=== PATIENT | male | born 1945 | race American Indian/Alaskan Native ===

== ENCOUNTER 2017-01-29 09:38 | Emergency (ER) | payer MEDICARE, MEDICAID ==
[2017-01-29 09:48] VITALS: BP 130/98
--- NOTE | 2017-01-29 10:20 | EDM.PDOC ---
ED HPI GENERAL MEDICAL PROBLEM - General Chief Complaint: ENT Problem Stated Complaint: EAR PAIN [id number] Time Seen by Provider: 01/29/17 10:18 Source of Information: Reports: Patient, Family History Limitations: Reports: No Limitations - History of Present Illness INITIAL COMMENTS - FREE TEXT/NARRATIVE: Per patient and family. pt has been having decreased hearing and states "they are plugged". C/o mild pain to both ears. denies drainage Onset: Other (1 month ago) Duration: Getting Worse Location: Reports: Other (B ears) Quality: Reports: Ache Severity: Mild Improves with: Reports: None Worsens with: Reports: None Associated Symptoms: Reports: No Other Symptoms - Related Data Allergies Allergy/AdvReac Type Severity Reaction Status Date / Time No Known Allergies Allergy Verified 09/14/13 11:00 Home Meds: Home Meds . [Unable to Verify Home Med List] 01/29/17 [History] Past Medical History HEENT History: Reports: Hard of Hearing Cardiovascular History: Reports: Hypertension Endocrine/Metabolic History: Reports: Diabetes, Type II Social & Family History - Caffeine Use Caffeine Use: Reports: Coffee - Recreational Drug Use Recreational Drug Use: No ED ROS ENT - Review of Systems Review Of Systems: See Below HEENT: Reports: Ear Pain ED EXAM, ENT - Physical Exam Exam: See Below Exam Limited By: No Limitations General Appearance: Alert, WD/WN, No Apparent Distress Ears: TM Obscured by Cerumen Respiratory/Chest: No Respiratory Distress, Lungs Clear, Normal Breath Sounds, No Accessory Muscle Use, Chest Non-Tender Cardiovascular: Normal Peripheral Pulses, Regular Rate, Rhythm, No Edema, No Gallop, No JVD, No Murmur, No Rub Course - Vital Signs Last Recorded V/S: Last Vital Signs Temp 98.4 F 01/29/17 09:47 Pulse 68 01/29/17 09:47 Resp 16 01/29/17 09:47 BP 130/98 H 01/29/17 09:47 Pulse Ox 97 01/29/17 09:47 - Re-Assessments/Exams Free Text/Narrative Re-Assessment/Exam: 01/29/17 12:10 multiple attempts at clearing cerumen impaction with minimal resolve. continues to have significant amounts of cerumen that obscures TM. will attempt once more after more soaking of peroxide and water and irrigation. 01/29/17 13:41 Attempted to reclean ears. Large amount of cerumen removed however significant amount remains present. Pt states hearing is markedly improved and no longer requires elevated voice to hear verbal commands. Will send pt home with cerumen softening drops and have him follow up in 2-3 days in clinic. Departure - Departure Time of Disposition: 13:43 Disposition: Home, Self-Care 01 Condition: Good Clinical Impression: Cerumen impaction Qualifiers: Laterality: bilateral Qualified Code(s): H61.23 - Impacted cerumen, bilateral - Discharge Information Instructions: Earwax Buildup Forms: ED Department Discharge Additional Instructions: Please use 5-10 drops of the medication in each ear twice a day. return to clinic in 4 days for re evaluation. return to Er for worsening symptoms, increased drainage or pain to ears.
== END 2017-01-29 14:02 | disposition home or self-care (01) ==
LOC: DL.ED 09:38
DX: H61.23 Impacted cerumen, bilateral (principal); I10 Essential (primary) hypertension; E11.9 Type 2 diabetes mellitus without complications
CPT/HCPCS: 69210; 99282; 99283

== ENCOUNTER 2018-10-03 08:45 | Emergency (ER) | payer MEDICARE, MEDICAID ==
--- NOTE | 2018-10-03 09:10 | EDM.PDOC ---
ED HPI GENERAL MEDICAL PROBLEM - General Chief Complaint: General Stated Complaint: UNKNOWN-AMBULANCE Time Seen by Provider: 10/03/18 09:05 Source of Information: Reports: Patient, EMS, EMS Notes Reviewed, RN, RN Notes Reviewed History Limitations: Reports: No Limitations - History of Present Illness INITIAL COMMENTS - FREE TEXT/NARRATIVE: Pt to ER per [facility] with c/o sudden onset weakness, dizziness, diaphoresis. Patient admits to having high blood pressure and DMII. He denies headache, chest pain, N/V/D. He states he has not been sick recently, denies fever, chills , cough. He states he was somewhat SOB at the time of the incident. Onset: Today, Sudden - Related Data Allergies Allergy/AdvReac Type Severity Reaction Status Date / Time No Known Allergies Allergy Verified 10/03/18 08:56 Home Meds: Home Meds . [Unable to Verify Home Med List] 01/29/17 [History] Past Medical History HEENT History: Reports: Hard of Hearing Cardiovascular History: Reports: Hypertension Endocrine/Metabolic History: Reports: Diabetes, Type II Social & Family History - Caffeine Use Caffeine Use: Reports: Coffee ED ROS GENERAL - Review of Systems Review Of Systems: ROS reveals no pertinent complaints other than HPI. ED EXAM, GENERAL - Physical Exam Exam: See Below Exam Limited By: No Limitations General Appearance: Alert, WD/WN, No Apparent Distress Eye Exam: Bilateral Eye: PERRL (4 sluggish), Other (Cataracts bilaterally) Ears: Normal External Exam, Hearing Grossly Normal Nose: Normal Inspection Throat/Mouth: Other (Cleft palate) Head: Atraumatic, Normocephalic Neck: Normal Inspection, Supple, Non-Tender, Full Range of Motion Respiratory/Chest: No Respiratory Distress, No Accessory Muscle Use, Chest Non- Tender, Decreased Breath Sounds Cardiovascular: Normal Peripheral Pulses, No Gallop, No JVD, No Murmur, No Rub, Irregularly Irregular Peripheral Pulses: 2+: Radial (L), Radial (R) GI/Abdominal: Normal Bowel Sounds, Soft, Non-Tender, Distended (Male) Exam: Deferred Rectal (Males) Exam: Deferred Back Exam: Normal Inspection, Full Range of Motion Extremities: Normal Inspection, Normal Range of Motion, Non-Tender, No Pedal Edema, Normal Capillary Refill Neurological: Alert, Oriented, CN II-XII Intact, Normal Cognition, Normal Reflexes, No Motor/Sensory Deficits Psychiatric: Normal Affect, Anxious Skin Exam: Warm, Dry, Intact, Normal Color, No Rash Lymphatic: No Adenopathy Course - Vital Signs Last Recorded V/S: Last Vital Signs Temp 98.7 F 10/03/18 11:10 Pulse 64 10/03/18 14:08 Resp 20 10/03/18 14:08 BP 125/58 L 10/03/18 14:08 Pulse Ox 93 L 10/03/18 14:08 - Orders/Labs/Meds Orders: Active Orders 24 hr Category Date Time Status EKG Documentation Completion [RC] STAT Care 10/03/18 08:58 Active EKG Documentation Completion [RC] STAT Care 10/03/18 13:00 Active Late Tray [DIET] Routine Diet 10/03/18 10:53 Active Labs: Laboratory Tests 10/03/18 10/03/18 10/03/18 Range/Units 09:07 09:07 09:07 WBC 7.1 (5.0-10.0) 10^3/uL RBC 5.32 (4.6-6.2) 10^6/uL Hgb 14.9 (14.0-18.0) g/dL Hct 45.8 (40.0-54.0) % MCV 86.1 (80-100) fL MCH 28.0 (27.0-34.0) pg MCHC 32.5 L (33.0-35.0) g/dL Plt Count 226 (150-450) 10^3/uL Neut % (Auto) 76.3 H (42.2-75.2) % Lymph % (Auto) 15.7 L (20.5-50.1) % [place] % (Auto) 6.0 (2-8) % Eos % (Auto) 1.6 (1.0-3.0) % Baso % (Auto) 0.4 (0.0-1.0) % D-Dimer, Quantitative 260 (0-400) ng/mL Sodium 135 (135-145) mmol/L Potassium 3.7 (3.6-5.0) mmol/L Chloride 100 L (101-111) mmol/L Carbon Dioxide 22.0 (21.0-31.0) mmol/L Anion Gap 16.7 BUN 20 H (7-18) mg/dL Creatinine 1.0 (0.6-1.3) mg/dL Est Cr Clr Drug Dosing TNP Estimated GFR (MDRD) > 60 BUN/Creatinine Ratio 20.00 Glucose 145 H (74-105) mg/dL Calcium 8.7 (8.4-10.2) mg/dl Total Bilirubin 0.7 (0.2-1.0) mg/dL AST 34 (10-42) IU/L ALT 34 (10-60) IU/L Alkaline Phosphatase 61 (42-121) IU/L Troponin I < 0.02 (0.00-0.02) ng/ml B-Natriuretic Peptide (0-100) pg/ml Total Protein 6.9 (6.7-8.2) g/dl Albumin 3.7 (3.2-5.5) g/dl Globulin 3.2 Albumin/Globulin Ratio 1.16 Urine Color (YELLOW) Urine Appearance (CLEAR) Urine pH (5.0-9.0) Ur Specific [place] (1.005-1.030) Urine Protein (NEGATIVE) Urine Glucose (UA) (NEGATIVE) Urine Ketones (NEGATIVE) Urine Occult Blood (NEGATIVE) Urine Nitrite (NEGATIVE) Urine Bilirubin (NEGATIVE) Urine Urobilinogen (0.2-1.0) mg/dL Ur Leukocyte Esterase (NEGATIVE) Urine RBC /HPF Urine WBC (0-5/HPF) /HPF Ur Epithelial Cells /HPF Amorphous Sediment (0/HPF) /HPF Urine Bacteria (0-FEW/HPF) /HPF Hyaline Casts /LPF Urine Mucus /LPF 10/03/18 10/03/18 10/03/18 Range/Units 09:07 10:16 13:06 WBC (5.0-10.0) 10^3/uL RBC (4.6-6.2) 10^6/uL Hgb (14.0-18.0) g/dL Hct (40.0-54.0) % MCV (80-100) fL MCH (27.0-34.0) pg MCHC (33.0-35.0) g/dL Plt Count (150-450) 10^3/uL Neut % (Auto) (42.2-75.2) % Lymph % (Auto) (20.5-50.1) % [place] % (Auto) (2-8) % Eos % (Auto) (1.0-3.0) % Baso % (Auto) (0.0-1.0) % D-Dimer, Quantitative (0-400) ng/mL Sodium (135-145) mmol/L Potassium (3.6-5.0) mmol/L Chloride (101-111) mmol/L Carbon Dioxide (21.0-31.0) mmol/L Anion Gap BUN (7-18) mg/dL Creatinine (0.6-1.3) mg/dL Est Cr Clr Drug Dosing Estimated GFR (MDRD) BUN/Creatinine Ratio Glucose (74-105) mg/dL Calcium (8.4-10.2) mg/dl Total Bilirubin (0.2-1.0) mg/dL AST (10-42) IU/L ALT (10-60) IU/L Alkaline Phosphatase (42-121) IU/L Troponin I < 0.02 (0.00-0.02) ng/ml B-Natriuretic Peptide 38 (0-100) pg/ml Total Protein (6.7-8.2) g/dl Albumin (3.2-5.5) g/dl Globulin Albumin/Globulin Ratio Urine Color Dark yellow (YELLOW) Urine Appearance Clear (CLEAR) Urine pH 6.0 (5.0-9.0) Ur Specific [place] 1.020 (1.005-1.030) Urine Protein Trace H (NEGATIVE) Urine Glucose (UA) Negative (NEGATIVE) Urine Ketones Negative (NEGATIVE) Urine Occult Blood Negative (NEGATIVE) Urine Nitrite Negative (NEGATIVE) Urine Bilirubin Negative (NEGATIVE) Urine Urobilinogen 0.2 (0.2-1.0) mg/dL Ur Leukocyte Esterase Negative (NEGATIVE) Urine RBC Not seen /HPF Urine WBC Not seen (0-5/HPF) /HPF Ur Epithelial Cells Few /HPF Amorphous Sediment Few (0/HPF) /HPF Urine Bacteria Not seen (0-FEW/HPF) /HPF Hyaline Casts Occasional H /LPF Urine Mucus Few H /LPF - Radiology Interpretation Free Text/Narrative:: Chest xray: No acute findings See rad report - Re-Assessments/Exams Free Text/Narrative Re-Assessment/Exam: 10/03/18 14:11 Labs and diagnostics discussed with the patient. He states understanding. Departure - Departure Time of Disposition: 13:38 Disposition: Home, Self-Care 01 Condition: Good Clinical Impression: Vasovagal near-syncope, Vasovagal episode - Discharge Information *PRESCRIPTION DRUG MONITORING PROGRAM REVIEWED*: No *COPY OF PRESCRIPTION DRUG MONITORING REPORT IN PATIENT LUIS: No Instructions: Near-Syncope, [id number], Vasovagal Syncope, Adult Referrals: PCP,None [Primary Care Provider] - Forms: ED Department Discharge Additional Instructions: Drink plenty of water Take medications as prescribed Follow up with your primary care facility - My Orders Last 24 Hours: My Active Orders 10/03/18 08:58 EKG Documentation Completion [RC] STAT 10/03/18 10:53 Late Tray [DIET] Routine 10/03/18 13:00 EKG Documentation Completion [RC] STAT - Assessment/Plan Last 24 Hours: My Active Orders 10/03/18 08:58 EKG Documentation Completion [RC] STAT 10/03/18 10:53 Late Tray [DIET] Routine 10/03/18 13:00 EKG Documentation Completion [RC] STAT
[2018-10-03 09:39] LABS: ANION GAP 16.7; CHLORIDE,CL 100 mmol/L (101-111); SODIUM,NA 135 mmol/L (135-145)
--- NOTE | 2018-10-03 09:44 | CR ---
Clinical history: 73-year-old male chest pain. Interpretation: Reasonable inspiratory effort upright AP portable chest, obese male. Normal cardiac silhouette without cephalization of flow, signs of alveolar edema or dependent pleural effusion. No lung mass, hilar lymphadenopathy or focal lobar pneumonia. No atelectasis/collapse. No pneumothorax or free subdiaphragmatic air. CONCLUSION: No acute cardiopulmonary abnormality.
[2018-10-03 14:08] VITALS: BP 125/58
== END 2018-10-03 14:15 | disposition home or self-care (01) ==
LOC: DL.ED 08:45
DX: R55 Syncope and collapse (principal); I10 Essential (primary) hypertension; E11.9 Type 2 diabetes mellitus without complications
CPT/HCPCS: 36415; 71045; 80053; 81001; 83880; 84484; 85025; 85379; 93005; 99285

== ENCOUNTER 2021-03-11 17:50 | Emergency (ER) | payer MEDICARE, MEDICAID ==
[2021-03-11 19:18] VITALS: BP 121/70; PULSE 67
--- NOTE | 2021-03-11 19:29 | EDM.PDOC ---
ED HPI GENERAL MEDICAL PROBLEM - General Chief Complaint: Cardiovascular Problem Stated Complaint: HIGH BLOOD PRESSURE Time Seen by Provider: 03/11/21 19:15 Source of Information: Reports: Patient History Limitations: Reports: No Limitations - History of Present Illness INITIAL COMMENTS - FREE TEXT/NARRATIVE: ED per w/c with report of feeling dizzy while driving . Episode lasted approximately 2 hours, Sx now resolved. Stated checked out at [facility] and told BP high and should be checked out. Denies prior similar episodes. No weakness, Denied noting difficulty with speech, Stated vision blurry but unclear if new or different from usual. Prior hx CVA with left nathan weakness years ago. Onset: Today (1499) - Related Data Allergies Allergy/AdvReac Type Severity Reaction Status Date / Time No Known Allergies Allergy Verified 10/03/18 08:56 Home Meds: Home Meds Isosorbide Mononitrate [Imdur] 30 mg PO DAILY 03/11/21 [History] Meloxicam 15 mg PO DAILY 03/11/21 [History] Omeprazole 20 mg PO DAILY 03/11/21 [History] atorvaSTATin [Lipitor] 10 mg PO BEDTIME 03/11/21 [History] atorvaSTATin [Lipitor] 10 mg PO BEDTIME 03/11/21 [History] hydroCHLOROthiazide [Hydrochlorothiazide] 25 mg PO DAILY 03/11/21 [History] lisinopriL [Lisinopril] 40 mg PO DAILY 03/11/21 [History] metFORMIN [Glucophage] 500 mg PO DAILY 03/11/21 [History] Past Medical History HEENT History: Reports: Hard of Hearing Cardiovascular History: Reports: Hypertension Neurological History: Reports: CVA Endocrine/Metabolic History: Reports: Diabetes, Type II - Past Surgical History HEENT Surgical History: Reports: Other (See Below) Other HEENT Surgeries/Procedures: cleft lip apparently surgically fixed Cardiovascular Surgical History: Reports: Coronary Artery Stent Social & Family History - Family History Family Medical History: No Pertinent Family History - Tobacco Use Tobacco Use Status *Q: Never Tobacco User - Caffeine Use Caffeine Use: Reports: Coffee - Recreational Drug Use Recreational Drug Use: No ED ROS GENERAL - Review of Systems Review Of Systems: Comprehensive ROS is negative, except as noted in HPI. ED EXAM, GENERAL - Physical Exam Exam: See Below Exam Limited By: No Limitations General Appearance: Alert, No Apparent Distress, Obese Eye Exam: Right Eye: Vision Changes (lateral peripheral deficit in comparison to left), Bilateral Eye: EOMI, PERRL Ears: Normal External Exam, Hearing Loss Nose: Normal Inspection Throat/Mouth: Other (poor dentation) Head: Atraumatic, Normocephalic Neck: Normal Inspection Respiratory/Chest: No Respiratory Distress, Lungs Clear, Wheezing (bronchial with minimal activity "wnl" per patient) Cardiovascular: Normal Peripheral Pulses, Regular Rate, Rhythm. No: JVD GI/Abdominal: Normal Bowel Sounds, Soft. No: Distended Neurological: Alert, Oriented, Other (Finger nose defecit on right, - finger to lateral let chin) Skin Exam: Warm, Dry, Intact, Normal Color #1 Interpretation EKG Date: 03/11/21 Time: 19:24 Rhythm: NSR Rate (Beats/Min): 72 [place]: Normal P-Wave: Present QRS: Normal ST-T: Normal Comparison: No Change Course - Vital Signs Last Recorded V/S: Last Vital Signs Temp 97.2 F 03/11/21 18:07 Pulse 67 03/11/21 19:17 Resp 20 03/11/21 19:07 BP 121/70 03/11/21 19:17 Pulse Ox 95 03/11/21 19:17 - Orders/Labs/Meds Labs: Laboratory Tests 03/11/21 03/11/21 03/11/21 Range/Units 17:58 19:32 19:44 WBC 10.5 H (5.0-10.0) 10^3/uL RBC 5.59 (4.6-6.2) 10^6/uL Hgb 16.2 (14.0-18.0) g/dL Hct 48.7 (40.0-54.0) % MCV 87.1 (80-100) fL MCH 29.0 (27.0-34.0) pg MCHC 33.3 (33.0-35.0) g/dL Plt Count 243 (150-450) 10^3/uL Neut % (Auto) 79.2 H (42.2-75.2) % Lymph % (Auto) 12.1 L (20.5-50.1) % [place] % (Auto) 7.7 (2-8) % Eos % (Auto) 0.8 L (1.0-3.0) % Baso % (Auto) 0.2 (0.0-1.0) % Sodium (136-145) mmol/L Potassium (3.5-5.1) mmol/L Chloride (98-107) mmol/L Carbon Dioxide (21-32) mmol/L Anion Gap (7-13) mEq/L BUN (7-18) mg/dL Creatinine (0.70-1.30) mg/dL Est Cr Clr Drug Dosing mL/min Estimated GFR (MDRD) BUN/Creatinine Ratio (No establ ref range) Glucose (70-99) mg/dL POC Glucose 121 H (70-99) mg/dL Lactic Acid (0.4-2.0) mmol/L Calcium (8.5-10.1) mg/dL Total Bilirubin (0.2-1.0) mg/dL AST (15-37) U/L ALT (16-63) U/L Alkaline Phosphatase (46-116) U/L Troponin I High Sens (<=76) pg/mL Total Protein (6.4-8.2) g/dL Albumin (3.4-5.0) g/dL Globulin Albumin/Globulin Ratio Urine Color Yellow (YELLOW) Urine Appearance Clear (CLEAR) Urine pH 6.0 (5.0-9.0) Ur Specific [place] 1.025 (1.005-1.030) Urine Protein Negative (NEGATIVE) Urine Glucose (UA) Negative (NEGATIVE) Urine Ketones Negative (NEGATIVE) Urine Occult Blood Negative (NEGATIVE) Urine Nitrite Negative (NEGATIVE) Urine Bilirubin Negative (NEGATIVE) Urine Urobilinogen 1.0 (0.2-1.0) mg/dL Ur Leukocyte Esterase Negative (NEGATIVE) Ketones 03/11/21 03/11/21 03/11/21 Range/Units 19:44 19:44 19:44 WBC (5.0-10.0) 10^3/uL RBC (4.6-6.2) 10^6/uL Hgb (14.0-18.0) g/dL Hct (40.0-54.0) % MCV (80-100) fL MCH (27.0-34.0) pg MCHC (33.0-35.0) g/dL Plt Count (150-450) 10^3/uL Neut % (Auto) (42.2-75.2) % Lymph % (Auto) (20.5-50.1) % [place] % (Auto) (2-8) % Eos % (Auto) (1.0-3.0) % Baso % (Auto) (0.0-1.0) % Sodium 140 (136-145) mmol/L Potassium 4.3 (3.5-5.1) mmol/L Chloride 103 (98-107) mmol/L Carbon Dioxide 27 (21-32) mmol/L Anion Gap 14.3 H (7-13) mEq/L BUN 24 H (7-18) mg/dL Creatinine 1.02 (0.70-1.30) mg/dL Est Cr Clr Drug Dosing 64.60 mL/min Estimated GFR (MDRD) > 60 BUN/Creatinine Ratio 23.5 (No establ ref range) Glucose 123 H (70-99) mg/dL POC Glucose (70-99) mg/dL Lactic Acid 1.6 (0.4-2.0) mmol/L Calcium 9.4 (8.5-10.1) mg/dL Total Bilirubin 0.4 (0.2-1.0) mg/dL AST 20 (15-37) U/L ALT 34 (16-63) U/L Alkaline Phosphatase 75 (46-116) U/L Troponin I High Sens 11 (<=76) pg/mL Total Protein 7.5 (6.4-8.2) g/dL Albumin 3.7 (3.4-5.0) g/dL Globulin 3.8 Albumin/Globulin Ratio 1.0 Urine Color (YELLOW) Urine Appearance (CLEAR) Urine pH (5.0-9.0) Ur Specific [place] (1.005-1.030) Urine Protein (NEGATIVE) Urine Glucose (UA) (NEGATIVE) Urine Ketones (NEGATIVE) Urine Occult Blood (NEGATIVE) Urine Nitrite (NEGATIVE) Urine Bilirubin (NEGATIVE) Urine Urobilinogen (0.2-1.0) mg/dL Ur Leukocyte Esterase (NEGATIVE) Ketones Negative Meds: Medications Discontinued Medications Generic Name Dose Route Start Last Admin Trade Name Freq PRN Reason Stop Dose Admin Meclizine HCl 25 mg 03/11/21 20:08 03/11/21 20:30 Meclizine 12.5 Mg Tab PO 03/11/21 20:09 25 mg ONETIME ONE Administration Ondansetron HCl 4 mg 03/11/21 20:08 03/11/21 20:20 Ondansetron 4 Mg/2 Ml Sdv IVPUSH 03/11/21 20:09 4 mg ONETIME ONE Administration - Re-Assessments/Exams Free Text/Narrative Re-Assessment/Exam: 03/11/21 21:[address], postiional vertigo type, nausea, dry heaves with any movement. TC [facility] [place] , and ED provider, MRI recommended. Family informed if CT and findings negative he may be released tonight. Family is available to lynette gutierrez. Departure - Departure Time of Disposition: 21:20 Disposition: DC/Tfer to Acute Hospital 02 Reason for Transfer *Q: Other Condition: Undetermined Clinical Impression: Vertigo, Dizziness of unknown cause, History of CVA (cerebrovascular accident) Hypertensive heart disease Qualifiers: Heart failure presence: unspecified whether heart failure present Qualified Code(s): I11.9 - Hypertensive heart disease without heart failure Diabetes Qualifiers: Diabetes mellitus type: type 2 Diabetes mellitus intermediate project manager insulin use: without custodial use Diabetes mellitus complication status: with neurologic complications Diabetes mellitus complication detail: with other neurological complication Qualified Code(s): E11.49 - Type 2 diabetes mellitus with other diabetic neurological complication Forms: ED Department Discharge Sepsis Event Note (ED) - Evaluation Sepsis Screening Result: No Definite Risk - Focused Exam Vital Signs: Vital Signs Temp Pulse Resp BP Pulse Ox 03/11/21 19:17 67 121/70 95 03/11/21 19:07 71 20 134/68 94 L 03/11/21 18:07 97.2 F 72 16 169/71 H 94 L
[2021-03-11] MEDS ORDERED: Ondansetron 4 MG/2 ML SDV IVPUSH ONE (20:08)
[2021-03-11] MEDS ORDERED: Meclizine 12.5 MG Tab PO ONE (20:08)
[2021-03-11 20:11] LABS: ANION GAP 14.3 mEq/L (7-13); CHLORIDE,CL 103 mmol/L (98-107); SODIUM,NA 140 mmol/L (136-145)
--- NOTE | 2021-03-11 20:33 | CT ---
PROCEDURE INFORMATION: Exam: CT Head Without Contrast Exam date and time: 03/11/2021 7:55 PM Age: 75 years old Clinical indication: Dizziness; Additional info: Dizzy TECHNIQUE: Imaging protocol: Computed tomography of the head without contrast. Total images: 153 Radiation optimization: All CT scans at this facility use at least one of these dose optimization techniques: automated exposure control; mA and/or kV adjustment per patient size (includes targeted exams where dose is matched to clinical indication); or iterative reconstruction. COMPARISON: No relevant prior studies available. FINDINGS: Brain: Normal. No hemorrhage. Unremarkable white matter. No mass effect. Cerebral ventricles: No ventriculomegaly. Paranasal sinuses: See "Nasal cavity" finding. Mastoid air cells: Some opacification of right and left mastoid air cells probably chronic. Bones/joints: Unremarkable. No acute fracture. Soft tissues: Unremarkable. Nasal cavity: Extensive opacification/abnormal soft tissue within the right and left nasal cavity. Some associated opacification of ethmoid air cells and inferior aspect of frontal sinus. Probable small osteoma along right ethmoid air cells. IMPRESSION: 1. Extensive opacification/abnormal soft tissue within right and left nasal cavity. Correlate clinically for underlying infection or other mass lesion. Associated opacification of multiple ethmoid air cells and minimal mucosal thickening frontal sinus. Correlate clinically. 2. No acute intracranial process.
--- NOTE | 2021-03-11 20:47 | CR ---
PROCEDURE INFORMATION: Exam: XR Chest Exam date and time: 03/11/2021 8:32 PM Age: 75 years old Clinical indication: Other: Dizziness; Additional info: Dizzy TECHNIQUE: Imaging protocol: XR of the chest. Views: 1 view. Total images: 1 COMPARISON: CR Chest 1V Frontal 10/03/2018 9:16 AM FINDINGS: Lungs: Mild central pulmonary venous congestion. Pleural spaces: Unremarkable. No pleural effusion. No pneumothorax. Heart/Mediastinum: Moderate enlargement of the cardiopericardial silhouette. Bones/joints: Unremarkable. IMPRESSION: Enlarged cardiopericardial silhouette with minimal central pulmonary venous congestion
== END 2021-03-11 21:21 ==
LOC: DL.ED 17:50
DX: R42 Dizziness and giddiness (principal); I11.9 Hypertensive heart disease without heart failure; E11.9 Type 2 diabetes mellitus without complications; I10 Essential (primary) hypertension; Z86.73 Personal history of transient ischemic attack (TIA), and cerebral infarction without residual deficits; Z95.5 Presence of coronary angioplasty implant and graft; Z79.84 Long term (current) use of oral hypoglycemic drugs
CPT/HCPCS: 36415; 70450; 71045; 80053; 81003; 82009; 82947; 83605; 84484; 85025; 93005; 93010; 96374; 99284; 99285-25; A9270-GY; J2405

== ENCOUNTER 2023-12-21 12:32 | Emergency (ER) | payer MEDICARE, MEDICAID ==
[2023-12-21 12:54] VITALS: BP 146/77; PULSE 83
[2023-12-21] MEDS: Sodium Chloride 0.9% 10 ML Syringe FLUSH PRN (13:12)
[2023-12-21 13:18] LABS: BASOPHILS PERCENT AUTO 0.5 % (0.0-1.0); EOSINOPHILS PERCENT AUTO 1.6 % (1.0-3.0); HEMATOCRIT 44.5 % (40.0-54.0); HEMOGLOBIN 14.9 g/dL (14.0-18.0); LYMPHOCYTES PERCENT AUTO 18.7 % (20.5-50.1); MEAN CORPUSCULAR HEMOGLOBIN 29.4 pg (27.0-34.0); MEAN CORPUSCULAR HGB CONC 33.5 g/dL (33.0-35.0); MEAN CORPUSCULAR VOLUME 87.8 fL (80-100); MONOCYTES PERCENT AUTO 6.5 % (2-8); NEUTROPHILS PERCENT AUTO 72.7 % (42.2-75.2); PLATELET COUNT,PLT 300 10^3/uL (150-450); RED BLOOD CELL COUNT 5.07 10^6/uL (4.6-6.2); WHITE BLOOD CELL COUNT,WBC 7.6 10^3/uL (5.0-10.0)
[2023-12-21 13:37] LABS: A/G RATIO 0.9; ALANINE AMINOTRANSFERASE,ALT 47 U/L (16-63); ALBUMIN 3.6 g/dL (3.4-5.0); ALKALINE PHOSPHATASE 82 U/L (46-116); ANION GAP 15.2 mEq/L (7-13); ASPARTATE AMNIOTRANSFERASE,AST 20 U/L (15-37); BILIRUBIN TOTAL 0.4 mg/dL (0.2-1.0); BLOOD UREA NITROGEN,BUN 16 mg/dL (7-18); CALCIUM 8.8 mg/dL (8.5-10.1); CARBON DIOXIDE,CO2 27 mmol/L (21-32); CHLORIDE,CL 102 mmol/L (98-107); CREATININE 1.14 mg/dL (0.70-1.30); ESTIMATED GFR 65 mL/min (>=60); GLUCOSE RANDOM 186 mg/dL (70-99); MAGNESIUM 1.6 mg/dL (1.8-2.4); POTASSIUM,K 4.2 mmol/L (3.5-5.1); PROTEIN TOTAL,TP 7.4 g/dL (6.4-8.2); SODIUM,NA 140 mmol/L (136-145)
[2023-12-21 14:54] LABS: APPEARANCE,URINE CLEAR (CLEAR); BILIRUBIN,URINE NEGATIVE (NEGATIVE); COLOR,URINE YELLOW (YELLOW); GLUCOSE,URINE NEGATIVE (NEGATIVE); KETONES,URINE NEGATIVE (NEGATIVE); LEUKOCYTE ESTERASE,URINE NEGATIVE (NEGATIVE); NITRITE,URINE NEGATIVE (NEGATIVE); OCCULT BLOOD,URINE NEGATIVE (NEGATIVE); PH,URINE 6.5 (5.0-9.0); PROTEIN,URINE NEGATIVE (NEGATIVE); UROBILINOGEN,URINE 0.2 mg/dL (0.2-1.0)
== END 2023-12-21 15:35 ==
LOC: DL.ED 12:32
DX: R00.1 Bradycardia, unspecified (principal); I10 Essential (primary) hypertension; E11.9 Type 2 diabetes mellitus without complications; Z86.16 Personal history of COVID-19; Z79.899 Other long term (current) drug therapy; Z88.0 Allergy status to penicillin; Z79.84 Long term (current) use of oral hypoglycemic drugs
CPT/HCPCS: 36415; 70450; 71045; 80053; 81003; 82947; 83735; 84484; 85025; 93005; 93010; 99285; J3490

== ENCOUNTER 2024-07-25 11:56 | Emergency (ER) | payer MEDICARE, MEDICAID ==
[2024-07-25] MEDS ORDERED: Sodium Chloride 0.9% 10 ML Syringe FLUSH PRN (12:15)
[2024-07-25 12:31] LABS: BASOPHILS PERCENT AUTO 0.4 % (0.0-1.0); EOSINOPHILS PERCENT AUTO 0.9 % (1.0-3.0); HEMATOCRIT 46.6 % (40.0-54.0); HEMOGLOBIN 15.2 g/dL (14.0-18.0); MEAN CORPUSCULAR HEMOGLOBIN 27.8 pg (27.0-34.0); MEAN CORPUSCULAR HGB CONC 32.6 g/dL (33.0-35.0); MEAN CORPUSCULAR VOLUME 85.2 fL (80-100); MONOCYTES PERCENT AUTO 7.2 % (2-8); NEUTROPHILS PERCENT AUTO 79.5 % (42.2-75.2); PLATELET COUNT,PLT 296 10^3/uL (150-450); RED BLOOD CELL COUNT 5.47 10^6/uL (4.6-6.2); WHITE BLOOD CELL COUNT,WBC 9.2 10^3/uL (5.0-10.0)
[2024-07-25 12:35] VITALS: BP 173/123; PULSE 93
[2024-07-25 12:51] LABS: PROTHROMBIN TIME 10.1 SEC (9.0-12.0); PTT,PARTIAL THROMBOPLSTIN TIME 24.5 SEC (22.0-34.0)
[2024-07-25 13:01] LABS: A/G RATIO 0.9; ALBUMIN 3.4 g/dL (3.4-5.0); ANION GAP 12.3 mEq/L (7-13); BILIRUBIN TOTAL 0.4 mg/dL (0.2-1.0); BUN/CREATININE RATIO 10.7 (No establ ref range); CALCIUM 8.8 mg/dL (8.5-10.1); CREATININE 1.03 mg/dL (0.70-1.30); EST CRCL DRUG DOSING (CG) 57.2 mL/min; MAGNESIUM 1.8 mg/dL (1.8-2.4); POTASSIUM,K 4.3 mmol/L (3.5-5.1); PROTEIN TOTAL,TP 7.4 g/dL (6.4-8.2); TSH ULTRASENSITIVE 1.78 uIU/mL (0.36-3.74)
[2024-07-25] MEDS: Aspirin 81 MG Tab.Chew PO ONE (13:18)
[2024-07-25] MEDS: Heparin Sodium 5,000 Units/ML Vial IVPUSH ONE (13:40)
[2024-07-25] MEDS: Heparin Sodium/0.45% NaCl 25,000 UNITS/500 ML BAG IV SCH (13:42)
== END 2024-07-25 14:49 ==
LOC: DL.ED 11:56
DX: I21.4 Non-ST elevation (NSTEMI) myocardial infarction (principal); I10 Essential (primary) hypertension; E11.9 Type 2 diabetes mellitus without complications; Z86.16 Personal history of COVID-19; Z86.73 Personal history of transient ischemic attack (TIA), and cerebral infarction without residual deficits; Z95.5 Presence of coronary angioplasty implant and graft; Z88.0 Allergy status to penicillin; Z79.84 Long term (current) use of oral hypoglycemic drugs; Z79.899 Other long term (current) drug therapy
CPT/HCPCS: 36415; 71045; 80053; 83036; 83735; 83880; 84443; 84484; 85025; 85610; 85730; 93005; 96365; 99285; A9270; J1644